=== PATIENT | male | born 1995 | race Hispanic/Latino ===

== ENCOUNTER 2019-07-30 12:44 | Emergency (ER) | payer SELFPAY | END 2019-07-30 15:02 | disposition home or self-care (01) | LOC: EDH 12:44 | DX: S51.812A Laceration without foreign body of left forearm, initial encounter (principal); Z72.0 Tobacco use; X58.XXXA Exposure to other specified factors, initial encounter; Y93.89 Activity, other specified; Y92.89 Other specified places as the place of occurrence of the external cause; Y99.8 Other external cause status | CPT/HCPCS: 12001 ==